=== PATIENT | male | born 1960 | race Caucasian/White ===

== ENCOUNTER 2019-02-05 07:25 | Emergency (ER) | payer BC ==
[2019-02-05 08:05] LABS: Protime INR 0.96
[2019-02-05 08:07] LABS: Absolute Lymphocytes (CBC) 1.7 K/uL (0.7-4.9); Absolute Monocytes 0.5 K/uL (0.1-1.3); Absolute Neutrophil 5.5 K/uL (1.8-8.0); Basophils % 2.2 % (0-1.3); Hematocrit 40.7 % (39.6-49.0); Lymphocytes % 21.3 % (15.3-44.8); MPV 8.3 fL (7.6-11.3); Monocytes % 6.4 % (3.3-12.3); RBC Red Blood Cell Count 4.44 M/uL (4.33-5.43)
[2019-02-05 08:21] LABS: ALT/SGPT 36 U/L (12-78); AST/SGOT 20 U/L (15-37); Albumin 3.8 g/dL (3.4-5.0); Alkaline Phosphatase 66 U/L (45-117); BUN Blood Urea Nitrogen 23 mg/dL (7-18); Bicarbonate 24 mmol/L (21-32); Bilirubin Direct 0.1 mg/dL (0-0.2); Bilirubin Total 0.4 mg/dL (0.2-1.0); Glucose Level 122 mg/dL (74-106); Magnesium 1.7 mg/dL (1.8-2.4); NT PRO-BNP 21 pg/mL (<125); Potassium 4.1 mmol/L (3.5-5.1); Protein, Total 7.2 g/dL (6.4-8.2); Sodium Level 138 mmol/L (136-145); Troponin (Emerg Dept Use Only) < 0.02 ng/mL (0.0-0.045)
--- NOTE | 2019-02-05 08:34 | RAD REPORT ---
EXAM DESCRIPTION: RAD - Chest Single View - 02/05/2019 8:19 am CLINICAL HISTORY: DYSPNEA Chest pain. COMPARISON: No comparisons FINDINGS: Portable technique limits examination quality. The lungs are grossly clear. The heart is normal in size. No displaced fractures. IMPRESSION: No acute intrathoracic process suspected.
[2019-02-05] MEDS ORDERED: MORPHINE 4 MG/ML SYR ONE (08:38)
[2019-02-05] MEDS ORDERED: ONDANSETRON 4 MG/2 ML VIAL ONE (08:38)
--- NOTE | 2019-02-05 08:45 | EKG ---
Test Date: 2019-02-05 Test Time: 08:16:07 Chief Science Officer: LINDEN MEASUREMENT RESULTS: Intervals: Rate: 70 KS: 202 QRSD: 84 QT: 372 QTc: 401 Greene: P: 32 KS: 202 QRS: 43 T: 44 INTERPRETIVE STATEMENTS: Normal sinus rhythm Normal ECG Compared to ECG 02/04/1998 13:47:00 Sinus arrhythmia no longer present Electronically Signed On 02-05-19 08:44:17 CDT by Bg Ohara
[2019-02-05] MEDS ORDERED: KETOROLAC 30 MG/ML INJ ONE (08:51)
[2019-02-05] MEDS ORDERED: MAGNESIUM SULFATE 1 gm IVPB 1 GM/100 ML BAG IV ONE (09:16)
--- NOTE | 2019-02-05 09:16 | RAD REPORT ---
EXAM DESCRIPTION: CT - Angio Aorta For Dissection - 02/05/2019 8:58 am CLINICAL HISTORY: Chest pain radiating to the back. Dissection;PE COMPARISON: No comparisons TECHNIQUE: CT angiography of the aorta was performed with MIPs. All CT scans are performed using dose optimization technique as appropriate and may include automated exposure control or mA/KV adjustment according to patient size. FINDINGS: A left aortic arch is present with normal branching pattern of the great vessels.No acute aortic finding is seen such as aneurysm, penetrating ulcer or dissection. The celiac axis, SMA, ANATOLY and renal arteries are widely patent. No evidence of pulmonary embolism. The lungs are clear. The liver demonstrates no focal mass or biliary dilatation.Diffuse fatty liver.The spleen, pancreas, adrenal glands and kidneys are within normal limits for arterial phase imaging. No bowel obstruction, free fluid or abscess.No pathologic enlarged lymphadenopathy identified. No fracture or worrisome bone lesion seen. IMPRESSION: No acute aortic finding is demonstrated.
--- NOTE | 2019-02-05 10:06 | ER ---
Nurse's Notes [facility] Name: Ronni Carrillo Age: 58 yrs Sex: Male : 1960 Arrival Date: 02/05/2019 Time: 07:27 Bed 20 Private MD: out of town, doctor Diagnosis: Dyspnea;Strain of muscle and tendon of back wall of thorax;Obesity, unspecified Presentation: 02/05 07:33 Presenting complaint: Patient states: weeks ago, i started having this R lower back hj pain, and for about 3 days now, i have this SOB, difficulty breathing episode especially when i bend over to tie my shoe or do things, reports lightheaded; denies chest pain; denies fever and chills; denies cough;. Transition of care: patient was not received from another setting of care. Onset of symptoms was February 05, 2019. Risk Assessment: Do you want to hurt yourself or someone else? Patient reports no desire to harm self or others. Initial Sepsis Screen: Does the patient meet any 2 criteria? No. Patient's initial sepsis screen is negative. Does the patient have a suspected source of infection? No. Patient's initial sepsis screen is negative. Care prior to arrival: None. 07:33 Method Of Arrival: Ambulatory 07:33 Acuity: ALTA 3 hj Triage Assessment: 07:37 General: Appears in no apparent distress. uncomfortable, Behavior is calm, cooperative, hj appropriate for age. Pain: Complains of pain in R lower back. Respiratory: Reports shortness of breath on exertion labored breathing since 3 days; Onset: The symptoms/episode began/occurred 3 days now;, the patient has mild shortness of breath. Historical: - Allergies: 07:33 No Known Allergies; hb - Home Meds: 07:33 Metformin Oral [Active]; Lisinopril Oral [Active]; hj - PMHx: 07:33 Diabetes - NIDDM; Hypertension; hj - PSHx: 07:33 Cholecystectomy; shoulder; Knee surgery; Carpal Tunnel Repair; hj - Immunization history:: Adult Immunizations up to date. - Social history:: Smoking status: Patient/guardian denies using tobacco. - Ebola Screening: : No symptoms or risks identified at this time. - Family history:: not pertinent. Screenin:34 Abuse screen: Denies threats or abuse. Denies injuries from another. Nutritional hb screening: No deficits noted. Tuberculosis screening: No symptoms or risk factors identified. Fall Risk None identified. Assessment: 07:37 Cardiovascular: Rhythm is. Respiratory: Airway is patent Respiratory effort is even, hj unlabored, Respiratory pattern is regular, symmetrical, Breath sounds are clear. 07:37 General: Appears in no apparent distress. uncomfortable, Behavior is calm, cooperative, hj appropriate for age. Pain: Complains of pain in R lower back. Neuro: Level of Consciousness is awake, alert, obeys commands, Oriented to person, place, time. GI: No signs and/or symptoms were reported involving the gastrointestinal system. : No signs and/or symptoms were reported regarding the genitourinary system. EENT: No signs and/or symptoms were reported regarding the EENT system. Derm: No signs and/or symptoms reported regarding the dermatologic system. Musculoskeletal: No signs and/or symptoms reported regarding the musculoskeletal system. 08:30 Reassessment: Patient and/or family updated on plan of care and expected duration. Pain hj level reassessed. Patient is alert, oriented x 3, equal unlabored respirations, skin warm/dry/pink. awaiting results and POC;. 09:47 Reassessment: Patient and/or family updated on plan of care and expected duration. Pain hj level reassessed. Patient is alert, oriented x 3, equal unlabored respirations, skin warm/dry/pink. awaiting POC;. Vital Signs: 07:31 BP 109 / 69; Pulse 88; Resp 18; Temp 97.7; Pulse Ox 98% on R/A; Weight 123.83 kg; hb Height 6 ft. (182.88 cm); Pain 5/10; 08:42 BP 94 / 58; Pulse 75; Pulse Ox 96% on R/A; mb4 09:30 BP 100 / 63; Pulse 112; Pulse Ox 97% on R/A; mb4 07:31 Body Mass Index 37.03 (123.83 kg, 182.88 cm) hb ED Course: 07:27 Patient arrived in ED. mr 07:28 out of town, doctor is Private Physician. mr 07:33 Jayden Arredondo MD is Attending Physician. dandre 07:33 Raj Walls RN is Primary Nurse. hj 07:33 Arm band placed on. hb 07:34 Patient has correct armband on for positive identification. Placed in gown. Bed in low hb position. Call light in reach. Side rails up X 1. 07:37 Triage completed. hj 07:38 Missed attempt(s): 20 gauge in left antecubital area. Bleeding controlled, band aid mb4 applied, catheter tip intact. 07:40 Inserted saline lock: 20 gauge in right antecubital area, using aseptic technique. hb Blood collected. 08:16 EKG done, by endoscopy tech. reviewed by Jayden Arredondo MD. at1 08:19 XRAY Chest (1 view) In Process Unspecified. EDMS 08:34 Urine collected: clean catch specimen, jaylen colored. mb4 08:57 CT completed. Patient tolerated procedure well. Patient moved to CT via stretcher. Patient moved back from CT. 08:58 CT Aorta for Dissection In Process Unspecified. EDMS 10:19 No provider procedures requiring assistance completed. IV discontinued, intact, hj bleeding controlled, No redness/swelling at site. Pressure dressing applied. Administered Medications: 08:22 Drug: Zofran 4 mg Route: IVP; Site: right antecubital; hj 08:58 Follow up: Response: No adverse reaction; Nausea is decreased hj 10:12 Follow up: Response: No adverse reaction hj 08:26 Not Given (Patient Refused): morphine 4 mg IVP once hj 08:30 Drug: TORadol 30 mg Route: IVP; Site: right antecubital; hj 08:58 Follow up: Response: No adverse reaction hj 10:12 Follow up: Response: No adverse reaction; Pain is decreased hj 08:54 Drug: Magnesium Sulfate 1 grams Route: IVPB; Infused Over: 1 hrs; Site: right hj antecubital; 10:11 Follow up: IV Status: Completed infusion; IV Intake: 100ml hj Intake: 10:11 IV: 100ml; Total: 100ml. hj Outcome: 10:06 Discharge ordered by . danrde 10:19 Discharged to home ambulatory. hj 10:19 Condition: stable 10:19 Discharge instructions given to patient, Instructed on discharge instructions, follow up and referral plans. medication usage, Demonstrated understanding of instructions, follow-up care, medications, Prescriptions given X 2. 10:20 Patient left the ED. hj Signatures: Dispatcher [employer] EDJayden Buck MD MD cha Rivera, Mary mr Jones, Cheryl Jones, health records technology teacher EKG Tat1 Raj Walls RN RN hj Baxter, Heather, RN RN hb Baxter, Mackenzie mb4 Corrections: (The following items were deleted from the chart) 07:43 07:37 Pain: Denies pain. [facility] 07:44 07:37 Pain: Denies pain. [facility]
--- NOTE | 2019-02-05 10:06 | EDPHYS ---
Physician Documentation [facility] Name: Ronni Carrillo Age: 58 yrs Sex: Male : 1960 Arrival Date: 02/05/2019 Time: 07:27 Bed 20 Private MD: out of town, doctor ED Physician Jayden Arredondo HPI: 02/05 08:22 This 58 yrs old Male presents to ER via Ambulatory with complaints of dandre Breathing Difficulty. 08:22 The patient has shortness of breath at rest, with light activity. Onset: The dandre symptoms/episode began/occurred 3 day(s) ago. The patient's shortness of breath has no apparent modifying factors. Associated signs and symptoms: Pertinent positives: This patient does not have any pertinent positive signs or symptoms associated with shortness of breath. Severity of symptoms: At their worst the symptoms were mild moderate in the emergency department the symptoms are unchanged. The patient has not experienced similar symptoms in the past. Historical: - Allergies: 07:33 No Known Allergies; hb - Home Meds: 07:33 Metformin Oral [Active]; Lisinopril Oral [Active]; hj - PMHx: 07:33 Diabetes - NIDDM; Hypertension; hj - PSHx: 07:33 Cholecystectomy; shoulder; Knee surgery; Carpal Tunnel Repair; hj - Immunization history:: Adult Immunizations up to date. - Social history:: Smoking status: Patient/guardian denies using tobacco. - Ebola Screening: : No symptoms or risks identified at this time. - Family history:: not pertinent. ROS: 08:22 Constitutional: Negative for fever, chills, and weight loss, Eyes: Negative for injury, dandre pain, redness, and discharge, ENT: Negative for injury, pain, and discharge, Neck: Negative for injury, pain, and swelling, Cardiovascular: Negative for chest pain, palpitations, and edema, Abdomen/GI: Negative for abdominal pain, nausea, vomiting, diarrhea, and constipation, : Negative for injury, bleeding, discharge, and swelling, MS/Extremity: Negative for injury and deformity, Skin: Negative for injury, rash, and discoloration, Neuro: Negative for headache, weakness, numbness, tingling, and seizure, Psych: Negative for depression, anxiety, suicide ideation, homicidal ideation, and hallucinations, Allergy/Immunology: Negative for hives, rash, and allergies, Endocrine: Negative for neck swelling, polydipsia, polyuria, polyphagia, and marked weight changes, Hematologic/Lymphatic: Negative for swollen nodes, abnormal bleeding, and unusual bruising. 08:22 Respiratory: Positive for pleurisy, shortness of breath, at rest. 08:22 Back: Positive for pain at rest, pain with movement. 08:22 MS/extremity: Negative for acute changes. Exam: 08:22 Constitutional: This is a well developed, well nourished patient who is awake, alert, dandre and in no acute distress. Head/Face: Normocephalic, atraumatic. Eyes: Pupils equal round and reactive to light, extra-ocular motions intact. Lids and lashes normal. Conjunctiva and sclera are non-icteric and not injected. Cornea within normal limits. Periorbital areas with no swelling, redness, or edema. ENT: Nares patent. No nasal discharge, no septal abnormalities noted. Tympanic membranes are normal and external auditory canals are clear. Oropharynx with no redness, swelling, or masses, exudates, or evidence of obstruction, uvula midline. Mucous membranes moist. Neck: Trachea midline, no thyromegaly or masses palpated, and no cervical lymphadenopathy. Supple, full range of motion without nuchal rigidity, or vertebral point tenderness. No Meningismus. Cardiovascular: Regular rate and rhythm with a normal S1 and S2. No gallops, murmurs, or rubs. Normal PMI, no JVD. No pulse deficits. Respiratory: Lungs have equal breath sounds bilaterally, clear to auscultation and percussion. No rales, rhonchi or wheezes noted. No increased work of breathing, no retractions or nasal flaring. Abdomen/GI: Soft, non-tender, with normal bowel sounds. No distension or tympany. No guarding or rebound. No evidence of tenderness throughout. Male : Normal genitalia with no discharge or lesions. Skin: Warm, dry with normal turgor. Normal color with no rashes, no lesions, and no evidence of cellulitis. MS/ Extremity: Pulses equal, no cyanosis. Neurovascular intact. Full, normal range of motion. Neuro: Awake and alert, GCS 15, oriented to person, place, time, and situation. Cranial nerves II-XII grossly intact. Motor strength 5/5 in all extremities. Sensory grossly intact. Cerebellar exam normal. Normal gait. Psych: Awake, alert, with orientation to person, place and time. Behavior, mood, and affect are within normal limits. 08:22 Chest/axilla: Inspection: normal, Palpation: tenderness, that is mild, that is moderate, of the right lateral posterior chest. Vital Signs: 07:31 BP 109 / 69; Pulse 88; Resp 18; Temp 97.7; Pulse Ox 98% on R/A; Weight 123.83 kg; hb Height 6 ft. (182.88 cm); Pain 5/10; 08:42 BP 94 / 58; Pulse 75; Pulse Ox 96% on R/A; mb4 09:30 BP 100 / 63; Pulse 112; Pulse Ox 97% on R/A; mb4 07:31 Body Mass Index 37.03 (123.83 kg, 182.88 cm) hb MDM: 07:33 [facility] medically screened. [facility] 08:25 Data reviewed: vital signs, nurses notes, lab test result(s), EKG, radiologic studies, [facility] scan, plain films. 02/05 07:35 Order name: Basic Metabolic Panel [facility] 02/05 07:35 Order name: CBC with Diff [facility] 02/05 07:35 Order name: LFT's [facility] 02/05 07:35 Order name: Magnesium [facility] 02/05 07:35 Order name: NT PRO-BNP; Complete Time: 08:54 [facility] 02/05 07:35 Order name: PT-INR [facility] 02/05 07:35 Order name: Troponin (emerg Dept Use Only); Complete Time: 08:54 [facility] 02/05 07:35 Order name: Blood Culture Adult (2) [facility] 02/05 07:35 Order name: Urine Culture [facility] 02/05 07:35 Order name: Flu; Complete Time: 08:54 [facility] 02/05 07:36 Order name: Basic Metabolic Panel; Complete Time: 08:54 EDMA 02/05 07:36 Order name: CBC with Automated Diff; Complete Time: 08:21 EDMA 02/05 07:36 Order name: Liver (Hepatic) Function; Complete Time: 08:54 EDMS 02/05 07:36 Order name: Magnesium; Complete Time: 08:54 EDMA 02/05 07:35 Order name: XRAY Chest (1 view); Complete Time: 08:54 [facility] 02/05 07:35 Order name: EKG; Complete Time: 07:36 [facility] 02/05 07:35 Order name: Cardiac monitoring; Complete Time: 07:39 [facility] 02/05 07:35 Order name: EKG - Nurse/Tech; Complete Time: 08:21 [facility] 02/05 07:35 Order name: IV Saline Lock; Complete Time: 07:47 [facility] 02/05 07:35 Order name: Labs collected and sent; Complete Time: 07:47 [facility] 02/05 07:35 Order name: O2 Per Protocol; Complete Time: 07:39 [facility] 02/05 07:35 Order name: O2 Sat Monitoring; Complete Time: 07:39 [facility] 02/05 07:35 Order name: Urine Dipstick-Ancillary (obtain specimen); Complete Time: 09:12 [facility] 02/05 07:36 Order name: Protime (+INR); Complete Time: 08:21 EDMS 02/05 08:22 Order name: CT Aorta for Dissection; Complete Time: 09:42 [facility] 02/05 08:40 Order name: Urine Dipstick--Ancillary (enter results) bd Administered Medications: 08:22 Drug: Zofran 4 mg Route: IVP; Site: right antecubital; hj 08:58 Follow up: Response: No adverse reaction; Nausea is decreased hj 10:12 Follow up: Response: No adverse reaction hj 08:26 Not Given (Patient Refused): morphine 4 mg IVP once hj 08:30 Drug: TORadol 30 mg Route: IVP; Site: right antecubital; hj 08:58 Follow up: Response: No adverse reaction hj 10:12 Follow up: Response: No adverse reaction; Pain is decreased hj 08:54 Drug: Magnesium Sulfate 1 grams Route: IVPB; Infused Over: 1 hrs; Site: right hj antecubital; 10:11 Follow up: IV Status: Completed infusion; IV Intake: 100ml Disposition: 02/05/19 10:06 Discharged to Home. Impression: Dyspnea, Strain of muscle and tendon of back wall of thorax, Obesity, unspecified. - Condition is Stable. - Discharge Instructions: Back Pain, Adult, Type 2 Diabetes Mellitus, Diagnosis, Adult, Obesity, Adult, Pleurisy, Back Pain, Adult, Eleg-bd-Svit, Aspirin and Your Heart, Type 2 Diabetes Mellitus, Diagnosis, Adult, Gwiq-ev-Vfmd, Obesity, Adult, Bhye-ex-Bbsd, Type 2 Diabetes Mellitus, Self Care, Adult. - Prescriptions for Ibuprofen 600 mg Oral Tablet - take 1 tablet by ORAL route every 8 hours As needed take with food; 21 tablet. Tylenol- Codeine #3 300-30 mg Oral Tablet - take 2 tablet by ORAL route every 6 hours As needed; 30 tablet. - Medication Reconciliation Form, Thank You Letter, Antibiotic Education, Prescription Opioid Use, Work release form form. - Follow up: Private Physician; When: 2 - 3 days; Reason: Recheck today's complaints, Continuance of care, Re-evaluation by your physician. - Problem is new. - Symptoms have improved. Signatures: Dispatcher [employer] EDMS Jayden Arredondo MD MD cha Joaquin, Henry, RN RN hj Baxter, Heather, RN RN Corrections: (The following items were deleted from the chart) 10:20 10:06 02/05/2019 10:06 Discharged to Home. Impression: Dyspnea; Strain of muscle and hj tendon of back wall of thorax; Obesity, unspecified. Condition is Stable. Forms are Medication Reconciliation Form, Thank You Letter, Antibiotic Education, Prescription Opioid Use. Follow up: Private Physician; When: 2 - 3 days; Reason: Recheck today's complaints, Continuance of care, Re-evaluation by your physician. Problem is new. Symptoms have improved. dandre
[2019-02-05 11:42] LABS: Urine Blood TRACE (NEG); Urine Glucose NEGATIVE (NEG); Urine Protein NEGATIVE (NEG)
== END 2019-02-05 10:20 | disposition home or self-care (01) ==
LOC: ER 07:25
DX: R06.00 Dyspnea, unspecified (principal); S29.012A Strain of muscle and tendon of back wall of thorax, initial encounter; E66.9 Obesity, unspecified; Z68.37 Body mass index [BMI] 37.0-37.9, adult; E11.9 Type 2 diabetes mellitus without complications; I10 Essential (primary) hypertension; Z79.84 Long term (current) use of oral hypoglycemic drugs
CPT/HCPCS: 36415; 71045; 71275; 74175; 80048; 80076; 81003; 83735; 83880; 84484; 85025; 85610; 87040; 87086; 87088; 87804; 93005; 96365; 96375; 99284; J2405; J3475; Q9967

== ENCOUNTER 2019-09-17 07:28 | Day surgery (SDC) | payer BC ==
--- OUTSIDE RECORDS SUMMARY | 2019-09-17 07:32 | XMS REPORT ---
:1960 [facility] Address [address] [place] [address] Dr. Davis [address] [place] [id number] Care Team Providers Name Role Phone DR MERRY DOTY Unavailable Unavailable Problems This patient has no known problems. Allergies, Adverse Reactions, Alerts This patient has no known allergies or adverse reactions. Medications This patient has no known medications. Encounters Start End Encounter Admission Attending Care Care Encounter Date/Time Date/Time Type Type Clinicians Facility Department ID 2018-05-11 2018-05-12 Outpatient Delphine DOTY Delphine [facility]G [id number] 06:00:00 10:35:00 MERRY 2017-07-25 2017-07-25 Outpatient Delphine DOTY Delphine [facility]SEACU [id number] 05:35:00 08:21:00 MERRY Results Test Description Test Time Test Comments Text Results Atomic Results Result Comments CARDIAC PROFILE 2018-05-12 07:06:00 Test Item Value Reference Range Comments TROPONIN I (test code=A84) <0.015 ng/mL 0.000-0.045 CKMB (test code=A49) 10.9 ng/mL <=3.6 CPK (test code=32A) 1352 IU/L 39-308 GLUCOMETER GLUCOSE- LAB USE [id number] 06:46:00 Test Item Value Reference Range Comments GLUCOMETER (test code=GMG) 114 mg/dL 70-100 GLUCOMETER GLUCOSE- LAB USE [id number] 06:45:00 Test Item Value Reference Range Comments GLUCOMETER (test code=GMG) 113 mg/dL 70-100 CARDIAC [id number] 01:29:00 Test Item Value Reference Range Comments TROPONIN I (test code=A84) <0.015 ng/mL 0.000-0.045 CKMB (test code=A49) 13.4 ng/mL <=3.6 CPK (test code=32A) 1461 IU/L 39-308 CARDIAC [id number] 19:20:00 Test Item Value Reference Range Comments TROPONIN I (test code=A84) <0.015 ng/mL 0.000-0.045 CKMB (test code=A49) 10.1 ng/mL <=3.6 CPK (test code=32A) 855 IU/L 39-308 BASIC METABOLIC [id number] 19:07:00 Test Item Value Reference Range Comments GLUCOSE (test code=06D) 141 mg/dL 75-100 SODIUM (test code=01A) 135 mmol/L 136-145 POTASSIUM (test code=01B) 3.8 mmol/L 3.6-5.1 CHLORIDE (test code=04A) 99 mmol/L 98-107 CO2 (test code=02A) 27 mmol/L 22-32 ANION GAP (test code=ANG) 12.8 mmol/L BUN (test code=05D) 16 mg/dL 7-18 CREATININE (test code=03E) 1.1 mg/dL 0.7-1.3 BUN/CREA (test code=BCR) 15 12-20 CALCIUM (test code=09D) 8.9 mg/dL 8.3-9.5 BRAIN NATRIURETIC [id number] 18:52:00 Test Item Value Reference Range Comments proBNP (test code=PBNP) 25 pg/mL 0-125 CT PE PROTOCOL*HSE*2018-05-11 18:33:15R3FPPV TIME OF STUDY: 05/11/2018 5:44 PMREASON FOR EXAM: [id number]: Dyspnea COMPARISON: Chest radiograph on the same date. TECHNIQUE: Contrast enhanced helical pulmonary angiogram was obtained perdepartmental PE protocol; coronal reformatted images were also reviewed. Post -processing, retro reconstruction, and interpretation of angiographicimages of the vessels was performed. MIP reformats were obtained and reviewed.FINDINGS: This is a diagnostic quality helical CT pulmonary angiogram. Thereis no acute pulmonary embolism to the segmental level branches of the pulmonaryartery. Heart and great vessels are unremarkable. There is no pleural or pericardialeffusion. There is no axillary, mediastinal, or hilar adenopathy. Lung windows demonstrate no consolidation, nodules, or other parenchymalabnormality. There is minimal bilateral dependent atelectasis. Osseous structures appear normal. Included views of the upper abdomen areunremarkable.IMPRESSION: 1. No acute pulmonary embolus.2. Minimalbilateral dependent atelectasis, otherwise unremarkable chest CT.CBC (INCLUDES AUTOMATED DIFFERENTIAL)2018-05-11 18:25:00 Test Item Value Reference Range Comments WBC (test code=WBC) 9.2 10\S\3/uL 4.5-11.0 RBC (test code=RBC) 4.31 10\S\6/uL 4.20-5.60 HGB (test code=HBG) 13.5 g/dL 14.0-18.0 HCT (test code=HCT) 40.7 % 35.0-46.0 MCV (test code=MCV) 94.4 fL 80.0-94.0 MCH (test code=MCH) 31.3 pg 27.0-31.0 MCHC (test code=MCHC) 33.2 g/dL 32.0-36.0 RDW (test code=RDW) 13.2 % 11.5-14.5 PLT (test code=PLT) 240 10\S\3/uL 130-400 MPV (test code=MPV) 10.0 fL 9.4-12.4 NEUTROP # (test code=NE#) 6.4 10\S\3/uL 2.0-8.0 LYMPH # (test code=LY#) 1.9 10\S\3/uL 1.2-4.0 MONOCYTE # (test code=MO#) 0.7 10\S\3/uL 0.0-1.1 EOSINOPH # (test code=EO#) 0.1 10\S\3/uL 0.0-0.7 BASOPHIL # (test code=BA#) 0.0 10\S\3/uL 0.0-0.3 IG # (test code=IG#) 0.03 10\S\3/uL 0.00-0.06 NRBC # (test code=NRBC#) 0.00 10\S\3/uL 0.00-0.01 NEUTROPH % (test code=NE%) 70.5 % 35.0-73.0 LYMPH % (test code=LY%) 20.3 % 20.0-55.0 MONO % (test code=MO%) 7.4 % 2.5-10.0 EOSINOPH % (test code=EO%) 1.2 % 0.0-5.0 BASOPHIL % (test code=BA%) 0.3 % 0.0-2.0 IG % (test code=IG%) 0.3 % 0.0-0.8 NRBC% (test code=NRBC%) 0.0 % 0.0-0.2 MANDIFF (test code=MDIFF) NO NO XR CHEST 1 VIEW PORTABLE*HSE*2018-05-11 11:50:11Portable AP chest, 1 viewLocation Code: B6YQFXHEMH HISTORY: R79.81: ABNORMAL BLOOD-GAS LEVELCOMPARISON: NoneCOMMENT: The heart size is enlarged with mild central pulmonary edema pattern withoutfocal consolidations. Osseous structures are intact.IMPRESSION: Mild CHFGLUCOMETER GLUCOSE- LAB USE [id number] 04:50:00 Test Item Value Reference Range Comments GLUCOMETER (test code=GMG) 100 mg/dL 70-100
[2019-09-17] MEDS ORDERED: NA CHLORIDE 0.9% 1,000 ML ONE ×3 (07:45→11:29)
[2019-09-17] MEDS ORDERED: KETOROLAC OPTHALMIC 5 ML BOT ONE (07:47)
[2019-09-17] MEDS ORDERED: TROPICAMIDE 1% OPTH 3 ML BOT ONE (07:47)
[2019-09-17] MEDS ORDERED: CYCLOPENTOLATE 2% OPTH 2 ML ONE (07:48)
[2019-09-17] MEDS ORDERED: MOXIFLOXACIN HCL 0.5% 3ML OPTH OPTH ONE (07:48)
[2019-09-17] MEDS ORDERED: PHENYLEPHRINE 10% OPTH 5ML ONE (07:48)
[2019-09-17] MEDS ORDERED: propofoL 200 MG/20 ML VIAL IV ONE (08:14)
[2019-09-17] MEDS ORDERED: MIDAZOLAM HCL 2 MG/2 ML INJ ONE (08:14)
[2019-09-17] MEDS ORDERED: FENTANYL CITR 100 MCG/2 ML ONE ×2 (08:14→09:22)
[2019-09-17] MEDS ORDERED: LIDOCAINE 2% MPF 5 ML VIAL ONE (08:14)
[2019-09-17] MEDS ORDERED: BALANCED SALT IRRIG PLAIN 500 ML BTL IRR ONE (08:18)
[2019-09-17] MEDS ORDERED: TOBRADEX 0.3-0.1% OPTH OINTMENT ONE (08:18)
[2019-09-17] MEDS ORDERED: BSS OPTHALMIC SOL 15 ML BOT OPTH ONE (08:18)
[2019-09-17] MEDS ORDERED: POVIDONE-IODINE 5% EYE DROPS ONE (08:18)
[2019-09-17] MEDS ORDERED: LIDOCAINE 1% W/EPI 1:100,000 MDV 20 ML VIAL ONE (08:18)
[2019-09-17] MEDS ORDERED: EPINEPHRINE/PF 1 MG/ML AMP ONE (08:28)
[2019-09-17] MEDS ORDERED: HYALURONATE SODIUM 14 MG/ML SYR OPTH ONE (08:29)
[2019-09-17] MEDS ORDERED: EPHEDRINE SULF 50 MG/ML VIAL ONE (09:26)
[2019-09-17] MEDS ORDERED: GLYCOPYRROLATE 0.2 MG/ML SYR ONE (09:26)
[2019-09-17] MEDS ORDERED: NS 0.9% VIAL 10 ML ONE ×3 (09:41→10:48)
[2019-09-17] MEDS: DUOVISC 1 KIT OPTH ONE ×2 (10:07→10:22)
[2019-09-17] MEDS ORDERED: Phenylephrine HCl 10 MG/ML 1 ML VIAL ONE (10:11)
[2019-09-17] MEDS ORDERED: DUOVISC 1 KIT OPTH ONE (10:25)
[2019-09-17] MEDS ORDERED: ONDANSETRON 4 MG/2 ML VIAL ONE ×2 (10:42→12:28)
[2019-09-17] MEDS ORDERED: dexAMETHasone 4 MG/ML VIAL ONE (10:42)
[2019-09-17] MEDS ORDERED: NS 0.9% VIAL 20 ML ONE (11:24)
[2019-09-17] MEDS ORDERED: HYDROMORPHONE HCL 1 MG/ML INJ ONE (12:28)
[2019-09-17] MEDS ORDERED: ACETAMINOPHEN 325 MG TABLET ONE (13:15)
[2019-09-17 13:22] VITALS: BP 124/79; TEMP 98.9; O2SAT 96
--- NOTE | 2019-09-17 23:14 | OP ---
Surgeon: Aashish Daly MD Continuation: Picking up on the four 10-0 sutures that were placed to secure the scleral graft, each of these sutur es was then rotated so that the knot was buried and then the conjunctiva closed over the sclera and f ull covering we have had both over the nasal and temporal incisions for the cortex as well as the sup eronasal quadrant for the Ahmed valve. Conjunctival closure was held via 9-0 Vicryl sutures. Once t hese had all been secured in place, the anterior chamber maintainer was removed. That wound was hydr ated and the eye found to be watertight. The procedure was concluded. The patient tolerated the pro cedure well. There were no complications. Estimated blood loss less than 1 mL. Patient is to follow up with myself, [facility]. A[facility] Daly, [facility]. KRISTIG/MODL Voice ID: [id number] Report ID: [id number]
--- NOTE | 2019-09-18 00:08 | OP ---
Date of Procedure: 09/17/2019 Surgeon: Aashish Daly MD Preoperative Diagnoses: Aphakia and traumatic glaucoma, iridodialysis following trauma, right eye. Postoperative Diagnoses: Aphakia and traumatic glaucoma, iridodialysis following trauma, right eye. Procedures Performed: Secondary insertion of intraocular lens (scleral fixated ) and placement of Ahmed valve with scleral patch graft. Description Of Procedure: After being properly identified in the preop holding area, the patient was taken back to the operating room where a time-out was performed. The patient was then prepped and draped in the normal sterile fashion. Examination of the eye underneath the operating microscope revealed an aphakic eye with visible elements of a torn anterior capsule along with a slightly disfigured iris and a good red reflex. The initial step was to grab the conjunctiva with a pair of forceps into a conjunctival cutdown nasally and temporally for location of the cortex sutures, which will be used to hold the lens in place as well as the conjunctiva peritomy in the superior temporal quadrant for placement of the Ahmed valve. While doing this, aqueous was seen leaking from the superior incision despite having two 10-0 sutures present and the eye became extremely soft consistent with its post-vitrectomized nature. Additional sutures were placed through the corneoscleral wound superiorly and a 23-gauge AC maintainer was then added in the inferior nasal quadrant. Once this had been done, our attention was again turned to the preparation of the scleral bed and taking down the conjunctiva. Slight hemostasis was applied nasally and temporally and then using a Fischer marker to tracey exactly 180 degrees apart on the cornea and sclera. A 180 degree ashraf were made using the caliper set to 3 mm and used to measure 3 mm from the corneoscleral limbus back onto the sclera on each side and then the caliper extended to 4 mm in order to size the length of the scleral groove. Once this had been marked in place, the Akreos lens, model AO60, power 17.0 diopter, serial #[id number]. It was opened and placed onto the cornea. The [employer] suture on a CVA needle was then opened and the needle cut off and the suture cut in half. The [employer] suture was then threaded through what would become the temporal haptics of the IOL in an identical fashion through the nasal haptics in anterior posterior and then posterior to anterior fashion. Once all 4 eyelets had been threaded through, the scholastic was added into the anterior chamber and a manual lens folder was used to fold the IOL in place. The superior sutures that had been placed through the corneoscleral wound were cut in order to allow insertion of the intraocular lens and the intraocular lens was delivered into the eye. All 4 ends of the [employer] suture were then trailing out exteriorly from the eye at this point and a Sinskey hook was used to gently manipulate part of them in with a serrefine being placed in order to ensure that the lens did not fall completely. The superior scleral wound was then resutured using 10-0 Prolene. The leading lines of the [employer] suture were then manipulated and place again using the Sinskey hook. A crescent blade was used to make a very thin scleral groove along the 4 mm tracey previously done and then a 23-gauge MVR blade was used to make a sclerotomy wound at the end of the 4 mm attachment point. A pair of micro grasping forceps was then placed through this 23-gauge hole and used to grab each of the 4 leading strands of [employer] and turned with careful attention to make sure they were all aligned. Once all 4 ends had been externalized, the IOL was confirmed to be well centered within none of the lines crossing and not upside down and then tied into position. The suture was then trimmed with a slightly long tail and the [employer] suture rotated so that the knot was buried inside the eye. Again visualization of the eye to ensure no lens tilting good centration was performed. I was satisfied that this was the case. Our attention moved on to the placement of the Ahmed valve. The conjunctiva previously being cut down was reexamined and as it had swollen slightly because of the leakage and from the AC maintainer. This was redissected through and the Ahmed valve packaging opened. The Ahmed valve was opened and placed into the superior temporal quadrant and the pocket we had secured and using a caliper, this was confirmed to be 8 mm posterior to the limbus. The Ahmed valve was then reexternalized and using a 30-gauge cannula on BSS threaded through the tube, the Ahmed valve was primed. 10-0 sutures were preloaded through the anterior eyelet of the valve and then the valve were placed into the superior temporal quadrant and the sutures were then placed through the sclera and tied into position. The tube was then stretched over the approximately 7-8 mm of sclera and over the cornea and then cut angled for appropriate amount extending into the anterior chamber. An MVR blade was used at the corneal limbal junction in order to thread the tube through and this was done. The tube was then secured using two 10-0 Prolene sutures in a single interrupted fashion. Next, the scleral patch graft was opened. It measured 7 mm x 7 mm and the leading edge was trimmed so they had been beveled in order to reduce the chance of any Dellen formation and then it was secured down by 4 interrupted sutures. DICTATION ENDS HERE (see part 2) MELISSA/JULIUSL Voice ID: [id number] Report ID: [id number] MTDAzalia
== END 2019-09-17 14:05 | disposition home or self-care (01) ==
LOC: OR 07:28
PROVIDERS: ATTEND Ophthalmology
PROC: 08123J4 Bypass Right Anterior Chamber to Sclera with Synthetic Substitute, Percutaneous Approach (ICD-10-PCS; 2019-09-17)
PROC: 08RJ3JZ Replacement of Right Lens with Synthetic Substitute, Percutaneous Approach (ICD-10-PCS; principal; 2019-09-17 08:30)
DX: H21.531 Iridodialysis, right eye (principal); H40.31X0 Glaucoma secondary to eye trauma, right eye, stage unspecified; H27.01 Aphakia, right eye
CPT/HCPCS: 82947; 66985; 66183; J2704; J0171; J2370; J2250; J3010 ×2; J1170; J7030 ×3; J2405 ×2

== ENCOUNTER 2021-01-13 06:13 | Day surgery (SDC) | payer BC ==
[2021-01-13] MEDS ORDERED: NA CHLORIDE 0.9% 1,000 ML ONE (06:44)
[2021-01-13] MEDS: PILOCARPINE 1% OPTH DROPS 15 ML BTL ONE ×3 (07:15→07:25)
[2021-01-13] MEDS: Gatifloxacin Ophth 0.5% (2.5 ML BTL) OPTH ONE ×3 (07:15→07:25)
[2021-01-13] MEDS: KETOROLAC OPTHALMIC 5 ML BOT ONE ×3 (07:15→07:25)
[2021-01-13] MEDS ORDERED: BSS OPTHALMIC SOL 15 ML BOT OPTH ONE (07:26)
[2021-01-13] MEDS ORDERED: TOBRADEX 0.3-0.1% OPTH OINTMENT ONE (07:26)
[2021-01-13] MEDS ORDERED: TOBRAMYCIN SULF 80 MG/2 ML VIAL ONE (07:27)
[2021-01-13] MEDS ORDERED: TRIAMCINOLONE ACETON 40 MG/ML VIAL ONE (07:27)
[2021-01-13] MEDS ORDERED: BSS PLUS 500 ML BOTTLE IRR ONE (07:28)
[2021-01-13] MEDS ORDERED: TRYPAN BLUE 0.5 ML SYR OPTH ONE (07:28)
[2021-01-13] MEDS ORDERED: POVIDONE-IODINE 5% EYE DROPS ONE (07:28)
[2021-01-13] MEDS ORDERED: HYALURONATE SODIUM 14 MG/ML SYR OPTH ONE (07:29)
[2021-01-13] MEDS ORDERED: DUOVISC 1 KIT OPTH ONE ×2 (07:29→09:11)
[2021-01-13] MEDS ORDERED: propofoL 200 MG/20 ML VIAL IV ONE ×2 (07:32→09:16)
[2021-01-13] MEDS ORDERED: FENTANYL CITR 100 MCG/2 ML ONE ×2 (07:33→09:18)
[2021-01-13] MEDS ORDERED: MIDAZOLAM HCL 2 MG/2 ML INJ ONE (07:33)
[2021-01-13] MEDS ORDERED: LIDOCAINE 1% MPF 5 ML VIAL ONE (07:33)
[2021-01-13] MEDS ORDERED: KETOROLAC 30 MG/ML INJ ONE (07:59)
[2021-01-13] MEDS ORDERED: dexAMETHasone 10 MG/ML VIAL ONE (07:59)
[2021-01-13] MEDS ORDERED: ONDANSETRON 4 MG/2 ML VIAL ONE (09:16)
[2021-01-13 11:45] VITALS: TEMP 97.5
[2021-01-13 12:42] VITALS: BP 122/77; O2SAT 95
--- NOTE | 2021-01-14 09:25 | OP ---
Date of Procedure: 01/13/2021 Surgeon: Aashish Daly MD Cokeman: None. Preoperative Diagnoses: Pseudophakic bullous keratopathy, right eye; partially dislocated intraocular lens, right eye; and vitreous in the anterior chamber, right eye following ocular trauma. Postoperative Diagnoses: Pseudophakic bullous keratopathy, right eye; partially dislocated intraocular lens, right eye; and vitreous in the anterior chamber, right eye following ocular trauma. Procedure Performed: Descemet stripping automated endothelial keratoplasty, right eye; vitrectomy, right eye and intraocular lens reposition, right eye. Description Of Procedure: After being properly identified in the preop holding, the patient was taken back to the operating room where a time-out was performed. The patient was then prepped and draped in normal sterile fashion. Confirmation of the eye tissue obtained from the eye bank was performed which showed excellent quality tissue and the preoperative plan was therefore carried out. Examination of the eye underneath the operating microscope revealed significant bullous keratopathy and a poor view and therefore the epithelium was scraped, which resulted in a much clearer view of the cornea showing Descemet folds as well as a tube shunt with the tube in the superior temporal position. Our attention was then turned to the corneal donor tissue after measuring the patient's eyes with the calipers. Of note, the horizontal diameter was significantly larger than the vertical diameter and ultimately an 8.5 mm punch was decided - prior to this, though an 8.5 mm BVI trephine was opened and placed on the cornea and centered, which showed good sizing with an 8.5. Thereafter an 8.5mm Youssef-Hessburg punch was opened. Returning to the donor cornea, the donor cornea was removed from its packaging and placed onto the base of the punch dome site up. With epithelium up, trypan blue was added to the donor room. There was a free flap of the stroma as a result of excellent tissue preparation and this was reposited carefully so that when the tissue was inverted and punched, it did have the stromal base. The tissue was centered on the Youssef-Hessburg punch and then punched in the 8.5 mm as described previously. Optisol was then readded and the tissue covered until we returned to it later. Our attention then turned back to the patient. Because of the patient's history of trauma as well as vitrectomy, a Filenger ring was placed, however, the sutures were not placed 360 degrees as he had a well-functioning Ahmed valve and I did not want to puncture the bleb. Therefore, the sutures were placed only around 75% or 270 degrees rather than a full 360 with additional intervening sutures to add additional support. A paracentesis wound was made superior nasally as well as inferior temporally and anterior vitrectomy carried out because of lack of availability of trocar ports. Vitrectomy was only carried out through the AC. This additionally because an AC maintainer was also not available. Once the vitrectomy had been fully performed, Kenalog was injected into the anterior chamber in order to confirm the removal of all vitreous. Kenalog fail to show any remaining stain and therefore was irrigated out and the vitrectomy portion concluded. Examination of the intra-ocular lens with the patient lying supine shows an intra-ocular lids just slightly subluxed inferiorly. By means of a Sinskey hook and a Kuglen hook, the lens was partially repositioned superiorly, but no further intra-ocular lens manipulation was carried out for fear of dislocating the limbs entirely. Thereafter, the anterior chamber was filled with Healon GV as regular Healon was not available and our attention was returned to the corneal tissue, so the and a Weck-Aubree and once this had been performed, the corneal stroma and the endothelium was and then the corneal endothelium based and entropion blue. Once the cornea was bathed in trypan blue and adequately stained, it was migrated into the corner of the punch where DuoVisc was added and the cornea folded into a 60-40 taco. Using a 10-0 Prolene on the STC6 needle slightly bent, the suture was passed through the cornea and then the cornea very carefully transferred via patent spatula into a Sheets glide which had been preplaced into the anterior chamber of the eye. Using the Sheets glide and a bent hook, the cornea was inserted using a 1 single pushing technique and inserted fairly well but because of the trailing sutures did have a tendency to go, careful attention was paid to this and using the forceps the STC-6 needle which had previously been bent was passed through the cornea. On attempting to pass the second, the suture snapped rather than risk additional trauma to the graft. The single suture was left in place to see if we could tie it, but this was unsuccessful and subsequently removed. The graft was centered using a reverse hook on air and unfolded very nicely on the first attempt. The anterior chamber was filled with approximately 100% air at this point, and careful attention was made to ensure that the tube did not interfere with the corneal apposition, which it did not. Once this has been performed, the main incision which had been made it was approximately 5 mm, was closed with 3 interrupted 10- 0 nylon sutures. Very little air was lost during this procedure, but I did go ahead and add additional air. A PI had previously been made prior to insertion, but this was probably not necessary as the patient had a tube. Nevertheless, it was created anyway. Once all 3 interrupted sutures had been tied, they were rotated so that the knot was buried and a single interrupted 10-0 nylon suture was placed through the paracentesis wound superior nasally to ensure water tightness. The globe never got as hard or as high pressure as ideally would have been light, but there was no leakage of BSS or air. The Filengrer ring was removed and again additional air was added at approximately a 90% air fill left. The graft was in good central position with the Ahmed tube behind it. There was no leakage and the procedure concluded with the patient tolerating the procedure well, having been asleep the entire time. TobraDex ointment was placed over the eye and the eye was bandaged. He was taken to the postoperative holding area in stable condition. He is to remain there for 2-3 hours, flat on his back in order to help with apposition of the graft. He is to follow with myself Dr. Aashish Daly at [facility] tomorrow morning. The donor corneal rim was sent for gross ID only and the solution was sent for microbiology. DICTATED BUT NOT REVIEWED JPG/MODL Voice ID: [id number] Report ID: [id number] [facility] CENTERAzalia
== END 2021-01-13 13:08 | disposition home or self-care (01) ==
LOC: OR 06:13
PROVIDERS: ATTEND Ophthalmology
PROC: 08R83KZ Replacement of Right Cornea with Nonautologous Tissue Substitute, Percutaneous Approach (ICD-10-PCS; 2021-01-13)
PROC: 08B43ZZ Excision of Right Vitreous, Percutaneous Approach (ICD-10-PCS; 2021-01-13)
PROC: 08SJ3ZZ Reposition Right Lens, Percutaneous Approach (ICD-10-PCS; principal; 2021-01-13 07:30)
DX: H18.11 Bullous keratopathy, right eye (principal); H43.01 Vitreous prolapse, right eye; H40.31X0 Glaucoma secondary to eye trauma, right eye, stage unspecified; T85.29XA Other mechanical complication of intraocular lens, initial encounter; Z20.822 Contact with and (suspected) exposure to COVID-19
CPT/HCPCS: 87070; 82947; 88300; 66825; 65756; 67036; U0002 ×2; J2704 ×2; J3301; J2250; J3010 ×2; J1100; J7030; J2405; J3260

== ENCOUNTER 2021-01-23 14:10 | Day surgery (SDC) | payer BC ==
[2021-01-23] MEDS: TETRACAINE HCL 0.5% 4ML OPTH ONE ×7 (16:20→18:00)
[2021-01-23] MEDS: MOXIFLOXACIN HCL 0.5% 3ML OPTH OPTH ONE ×6 (16:20→16:45)
[2021-01-23] MEDS ORDERED: TOBRADEX 0.3-0.1% OPTH OINTMENT ONE (17:54)
[2021-01-23] MEDS ORDERED: POVIDONE-IODINE 5% EYE DROPS ONE (17:55)
[2021-01-23 20:14] VITALS: O2SAT 96
[2021-01-23 21:32] VITALS: BP 124/71; TEMP 98.9
--- NOTE | 2021-01-24 01:53 | OP ---
Date of Procedure: 01/23/2021 Surgeon: Aashish Daly MD Plant Operations Vice President: None. Preoperative Diagnosis: Dislocation of DSAEK flap graft, right eye. Postoperative Diagnosis: Dislocation of DSAEK flap graft, right eye. Procedure Performed: Instillation of air into the anterior chamber of right eye to refloat and reposition DSAEK graft. Description Of Procedure: After being properly identified in the preoperative holding area, patient was taken back to the operating room where a time-out was performed. The patient was then prepped and draped in the normal sterile fashion. Examination of the eye underneath the operating microscope revealed a dislocated DSAEK graft as previously identified in my office. Of note, while in my office the graft was in good central position and it was only the inferior nasal portion, that was not in good apposition. Once the patient was recumbent, the graft had migrated temporally as well as had some rotation based on the appearance of the "S" stamp. Tetracaine was added to the patient's eye in order to have additional anesthesia and then additional air was placed into the anterior chamber. Once this was rebubbled, a bent 30-gauge needle, also known as "hook on air" was used to reposition the graft centrally and additional air instilled. Wounds were tested and found to be airtight and watertight, and this was observed underneath the operating microscope for some time. Of note, the patient did experience pain on placement and movement of the upper lid speculum and the globe was noted to be soft. This was to be expected as the patient is post vitrectomy as well as having placement of an Ahmed tube. Some air was lost during changing and manipulating of the lid speculum as noted above, but additional air was added, and when the procedure concluded, the graft was in good position with a near 100% fill. The patient was taken to the postoperative holding area in stable condition having tolerated the procedure well with the exception of the pain noted above. He is to remain there flat for 3 hours and to follow up with myself, Dr. Aashish Daly at the [facility] on Tuesday. TobraDex ointment was applied in the operating room, and the patient has both Besivance and Durezol eyedrops at home which he is to use twice a day in both eyes. There were no complications. Estimated blood loss was 0. No specimens were sent. No drains were placed. The cornea while cloudy did allow adequate visibility and no epithelial removal was necessary at this time. JPG/MODL Voice ID: [id number] Report ID: [id number] MTDD
== END 2021-01-23 21:44 | disposition home or self-care (01) ==
LOC: OR 14:10
PROVIDERS: ATTEND Ophthalmology
PROC: 3E0C3GC Introduction of Other Therapeutic Substance into Eye, Percutaneous Approach (ICD-10-PCS; principal; 2021-01-23 17:00)
DX: H53.8 Other visual disturbances (principal); T86.848 Other complications of corneal transplant; Z20.822 Contact with and (suspected) exposure to COVID-19
CPT/HCPCS: 82947 ×2; 66020; U0003

== ENCOUNTER 2023-11-29 07:17 | Day surgery (SDC) | payer BC ==
[2023-11-24 12:48] LABS: Protime INR 1.03
--- NOTE | 2023-11-24 18:33 | RAD REPORT ---
EXAM DESCRIPTION: Renetta Pa And Lat (2 Views)11/24/2023 12:55 pm CLINICAL HISTORY: pre op COMPARISON: Chest Single View dated 02/05/2019 TECHNIQUE: Portable AP view of the chest. FINDINGS: The lungs are clear. No pneumothorax or effusion. The cardiomediastinal contours are unre markable. IMPRESSION: No acute cardiopulmonary process.
--- NOTE | 2023-11-28 14:44 | EKG ---
Test Date: 2023-11-24 Test Time: 12:22:56 Stock Preparer: LINDEN MEASUREMENT RESULTS: Intervals: Rate: 69 VT: 206 QRSD: 88 QT: 366 QTc: 392 [place]: P: 24 VT: 206 QRS: 20 T: 26 INTERPRETIVE STATEMENTS: Normal sinus rhythm Normal ECG No previous ECG available for comparison Electronically Signed On 11-28-23 14:32:08 UNCLAIMED PROPERTY OFFICER by Aureliano Hanson
[2023-11-29] MEDS: NA CHLORIDE 0.9% 1,000 ML ONE (07:40)
[2023-11-29] MEDS ORDERED: MIDAZOLAM HCL 2 MG/2 ML INJ ONE (07:56)
[2023-11-29] MEDS ORDERED: propofoL 200 MG/20 ML VIAL IV ONE (07:56)
[2023-11-29] MEDS ORDERED: LIDOCAINE 1% MPF 5 ML VIAL ONE (07:56)
[2023-11-29] MEDS ORDERED: ONDANSETRON 4 MG/2 ML VIAL ONE (07:56)
[2023-11-29] MEDS ORDERED: FENTANYL CITR 100 MCG/2 ML ONE (07:56)
[2023-11-29] MEDS: Gentamicin Inj 240 MG in NA CHLORIDE 0.9% 100 ML IVPB ONE (08:00)
[2023-11-29] MEDS: AMPICILLIN SODIUM 2 GM/VIAL VIAL ONE (08:29)
[2023-11-29] MEDS ORDERED: dexAMETHasone 10 MG/ML VIAL ONE (08:38)
[2023-11-29] MEDS ORDERED: KETOROLAC 30 MG/ML INJ ONE (09:00)
[2023-11-29] MEDS ORDERED: PHENAZOPYRIDINE 100MG TAB PO ONE (09:38)
[2023-11-29] MEDS ORDERED: CODEINE 30MG/APAP 300MG TAB PO PRN (09:38)
--- NOTE | 2023-11-29 09:48 | RAD REPORT ---
EXAM DESCRIPTION: RAD - Urethrocystogrphy Retrograde - 11/29/2023 9:36 am CLINICAL HISTORY: ICD N 20.0 FINDINGS: 4 fluoroscopic spot images obtained. Fluoroscopy time 0.3 minutes Left ureter was cannulated and contrast administered. Subsequently an ureteral stent was placed. Exam ination was performed by Dr Inman
--- NOTE | 2023-11-29 10:00 | OP ---
Surgeon: SIMRAN JUARES Preoperative Diagnosis: Left 8 mm distal ureterolithiasis. Postoperative Diagnoses: 1.Left 8 mm distal ureterolithiasis. 2.Meatal stenosis. Principal Procedures: 1.Meatal dilation using sounds. 2.Cystoscopy. 3.Left retrograde pyelography. 4.Left ureteroscopy with laser lithotripsy. 5.Left ureteral stent placement. Indication For Procedure: Mr. Malcolm presented to the Urology Clinic having been seen at an outside facility with an obstructing ureteral calculus. The CT read by the radiologist in different portions suggested the stone was at the ureterovesical junction and separately the ureteropelvic junction, ma regan it confusing exactly where the stone was located, potentially affecting the degree of surgical t herapy required. As a result, I had the patient bring a CD of the CT imaging performed and I reviewe d it in preparation for surgery today. The following were the CT findings: 1.No nephrolithiasis observed bilaterally. 2.Mild to moderate left hydronephrosis. 3.Ureteronephrosis down to the level of an 8 mm stone at the UVJ. As a result, I counseled the patient on the need for surgical intervention and he presents today for that management. Procedure In Detail: The patient was consented in the preoperative holding area before being transfe rred to the operative suite where general anesthesia was induced. He was given ampicillin 2 g and ge ntamicin 240 mg IV antimicrobial prophylaxis, and pneumo boots were provided for DVT prophylaxis. He was placed in the lithotomy position, padded and secured to the table appropriately. His genitalia were prepped with Hibiclens and he was draped in standard fashion. The case was begun attempting to place the 22-Mauritian cystoscope, but there was meatal stenosis. So I utilized urethral sounds to dila te the meatus to 26-Mauritian after failing to adequately dilate the meatus using the cystoscope 22-Fren obturator. Once adequately dilated, I was able to pass the 22-Mauritian cystoscope via his urethra a nd into his bladder with relative ease. There was significant elevation of the bladder neck that may be causing a degree of obstruction, though the prostatic urethral channel was not significant in [facility], likely approximately 2 to 3 cm. Upon entry into the bladder, it was surveyed in its entirety, a nd there were no papillary mucosal lesions noted throughout. There were some fragments of calculi pr esent posterior to the trigone. The ureteral orifices were orthotopic in location, and the left uret eral orifice had a heaped up appearance consistent with likely persistent obstruction from the 8 mm c alculus. As a result, because the orifice was a bit stenotic, I utilized the tip of a Sensor wire an d a 5-Mauritian ureteral access catheter to gain access into the orifice. A retrograde pyelogram was th en performed. Left retrograde pyelography: Using a 70:30 mixture of Omnipaque and saline, contrast was injected vi a the lumen of the 5-Mauritian ureteral access catheter. The stone was radiolucent; but contrast did em anate around a filling defect in the distal ureter before entering a dilated component of the distal ureter that extended into the mid and proximal ureter with mild pelvocaliectasis noted. As a result, I navigated a Sensor wire via the 5-Mauritian ureteral access catheter up the ureter and coiled it with in the upper mid pole calyx of the left kidney. Leaving that Sensor wire in place and removing the 5 -Mauritian ureteral access catheter, I decompressed his bladder of fluid and urine and removed the cysto scope. I then used the semirigid ureteroscope and performed direct vision urethroscopy and entered h is bladder where I navigated my way into the ureteral orifice, requiring use of a Patienceson guidewire t o act as a bridge along with the Sensor wire in place. Upon entry beyond the stenotic ureteral orifi ce, approximately 1 to 2 cm into the intramural ureter, the stone was visible. I thus switched the B Easy Voyageson guidewire for a 365 nm laser fiber and begun at a power setting of 0.8 joules and 10 hertz. T he stone was somewhat hard and so I increased the hertz to 15 hertz before eventually shifting and ut ilizing a power setting of 0.4 joules and 25 hertz to essentially dust the stone. At the conclusion, all stone fragments seen were about the size of the laser fiber and so I concluded laser lithotripsy . I then removed the ureteroscope under direct vision, and backloaded the cystoscope over the indwel ling Sensor safety wire. I then passed a 6-Mauritian x 26 cm double-J ureteral stent into his collectin g system with a coil observed fluoroscopically in the upper mid pole calyx or the renal pelvis, and o ne cystoscopically formed in his bladder. I left the stent secured to its tether, which after decomp ressing his bladder of fluid and urine and removing the cystoscope, I secured that tether to the glan s penis using Mastisol and Steri-Strips. He was then taken out of the lithotomy position, awakened f rom general anesthesia, transferred to a stretcher, and then transferred to the recovery room in good condition. Complications: None. Discharge Disposition: He may follow up in the Urology Clinic on Tuesday for tethered ureteral stent extraction. I did send a prescription for antimicrobials which should cover him through that time. If this is not his first stone event, he would require follow up in about 2 to 3 months with Litholin k metabolic assessment x2 performed about 1 month prior to followup. If this is his first stone form ing event, he should be instructed to increase the volume of his fluid intake such that he has a full bladder and needs to void at least every 3 to 4 hours during the day. ERNESTO/MIREYA Voice ID: [id number] Report ID: [id number]
[2023-11-29 10:04] VITALS: O2SAT 100
[2023-11-29 10:33] VITALS: BP 130/85; TEMP 97.7
== END 2023-11-29 10:25 | disposition home or self-care (01) ==
LOC: OR 07:17
PROVIDERS: ATTEND Urology
PROC: 0T778DZ Dilation of Left Ureter with Intraluminal Device, Via Natural or Artificial Opening Endoscopic (ICD-10-PCS; 2023-11-29)
PROC: 0TF68ZZ Fragmentation in Right Ureter, Via Natural or Artificial Opening Endoscopic (ICD-10-PCS; principal; 2023-11-29 09:15)
DX: N20.1 Calculus of ureter (principal); G47.33 Obstructive sleep apnea (adult) (pediatric); E11.9 Type 2 diabetes mellitus without complications; E66.9 Obesity, unspecified; I10 Essential (primary) hypertension
CPT/HCPCS: 93005; 87088; 87086; 36415; 85610; 82947 ×2; 87077; 87186; 71046; 74450; 51610; 52356; J2704; J2001; J1580; J2250; J3010; J1100; J2405; J0290; J7030